=== PATIENT | male | born 1940 | race Caucasian/White ===

== ENCOUNTER 2017-02-28 12:01 | Observation (INO) | payer MEDICARE ==
[2017-02-28] VITALS (8 sets, daily range): BP systolic 141–190; BP diastolic 69–90; PULSE 50–62; RESP 18–20; TEMP 96.7–96.9; O2SAT 97–100; Ht 190.5 cm; Wt 77.1 kg
[~2017-02-28] VITALS: Ht 190.5 cm; Wt 77.1 kg
[~2017-02-28 12:01] MED LIST: AMLO10TA62 PO; ASPI-730 PO; BENA5TAB3 PO; CLIN-89 PO; FINA5TAB2 PO; OMEP20CA81 PO; SIMV40TA82 PO; TAMS0.4C20 PO
--- OUTSIDE RECORDS SUMMARY | 2017-02-28 12:33 | XMS REPORT | Continuity of Care Document ---
Author Author [facility] Organization [facility] Address Unknown Phone Unavailable Care Team Providers Care Putty Patcher Name Role Phone SARINA SWAIN MD Primary Care Physician [phone] Insurance Providers Guarantor Juliet Juárez Address [address] [place] [id number] Email DENIED/NO TO PT [facility] Payer [employer] Policy Number [id number] Subscriber's Name Juliet Juárez Jarvis Relationship 18 Self Effective Date 15 Chief Complaint and Reason for Visit Chief Complaint Upper Extremity Problem Reason for Visit Cellulitis Cat bite involving extremity Problems Active Problems Medical Problem Onset Date Status Erythema of lower extremity Unknown Left leg swelling Unknown Swelling of left lower extremity Unknown Past Problems Medical Problem Onset Date CHF (congestive heart failure) Unknown Cat bite involving extremity Unknown Cellulitis Unknown Lower extremity edema Unknown PAD (peripheral artery disease) Unknown Pedal edema Unknown Medications Current Home Medications Medication Dose Units Route Directions Days Qty Instructions Start Date Amlodipine Besylate (Norvasc) 10 Mg Tablet 10 Mg Oral Bedtime Aspirin 325 Mg Tablet 325 Mg Oral Daily 12/11/13 Benazepril Hcl 5 Mg Tablet 5 Mg Oral Bedtime 08/18/16 Clindamycin Hcl 150 Mg Capsule 3 Cap Oral Four Times Daily 7 Days 84 Capsule TAKE WITH A FULL GLASS OF WATER TO AVOID ESOPHAGEAL IRRITATION. Finasteride (Proscar) 5 Mg Tablet 5 Mg Oral Bedtime 08/18/16 Omeprazole (Prilosec) 20 Mg Capsule.dr 20 Mg Oral Before Breakfast 10/03/09 Simvastatin 40 Mg Tablet 40 Mg Oral Bedtime 12/11/13 Tamsulosin Hcl (Flomax) 0.4 Mg Cap.sr.24h 0.4 Mg Oral Bedtime 04/07 Past Home Medications Medication Directions Ordered Status Benazepril Hcl 40 Mg Tablet, 40 Mg Oral Daily 12/11/13 Discontinued Social History Social History Problem Response Recorded Date/Time Onset Date Status Hx Substance Use No 08/18/2016 4:21pm Not Applicable Not Applicable Hx Alcohol Use Y OCC. 08/18/2016 4:21pm Not Applicable Not Applicable Has the pt used tobacco in the last 12 months Yes 12/11/2013 11:32am Not Applicable Not Applicable Hospital Discharge Instructions No hospital discharge instructions. Plan of Care Discharge Date 11/03/16 2:38pm Disposition 01 DISCHARGED HOME, SELF-CARE Condition at Discharge Stable Instructions/Education Provided DI for Cellulitis -- Adult Animal Bites Prescriptions See Medication Section Referrals SARINA SWAIN MD Address: [address] [place] [phone] Additional Instructions/Education If swelling gets worse, redness worsens or fevers start, go to the ER. Medication as prescribed. Functional Status No functional status results. Allergies, Adverse Reactions, Alerts No known allergies. Immunizations Immunization Event Date Type Not Given Reason Dose Number Lot Number Delivery Sales Worker VIS Given Tdap 11/03/16 Administered 1 [id number] Handy 12/14/14 Query Response on File Recorded Date/Time Hx Influenza Vaccination 200712/11/13 11:32am Hx Pneumococcal Vaccination Y DEC. 201112/11/13 11:32am Hx Influenza Vaccination 200712/11/13 11:32am Hx Tetanus Diptheria No 05/20/09 6:50pm Influenza Vaccine Hx NO 11/03/16 1:43pm Tetanus Diptheria Vaccine History NO 11/03/16 1:43pm Vital Signs Acute Vital Signs Vital Response Date/Time Temperature (Fahrenheit) 97.6 deg F (96.8 - 99.1) 11/03/2016 1:34pm Temperature (Calculated Celsius) 36.72662 degrees C (36.0 - 37.3) 11/03/2016 1:34pm Pulse Rate (adult) 84 bpm (60 - 100) 11/03/2016 1:34pm Respiratory Rate 20 breaths/min (10 - 20) 11/03/2016 1:34pm O2 Sat by Pulse Oximetry 97 % (90 - 100) 11/03/2016 1:34pm Blood Pressure 117/70 mm Hg 11/03/2016 1:34pm Height (Feet) 6 feet 08/18/2016 2:00pm Height (Inches) 75.00 inches 11/03/2016 1:34pm Weight (Kilograms) 78.700 kg 11/03/2016 1:34pm Body Mass Index (BMI) 21.0 11/03/2016 1:34pm Results Laboratory Results Test Name Result Units Flags Reference Collection Date/Time Result Date/ Time Comments White Blood Count 4.6 T/MM3 4.5-11.0 08/18/2016 3:57pm 08/18/2016 4: 02pm Red Blood Count 4.52 M/MM3 4.50-5.90 08/18/2016 3:57pm 08/18/2016 4: 02pm Hemoglobin 14.0 GM/DL 13.5-17.5 08/18/2016 3:57pm 08/18/2016 4:02pm Hematocrit 40.5 % L 41-53 08/18/2016 3:57pm 08/18/2016 4:02pm Mean Corpuscular Volume 89.6 UM3 80-100 08/18/2016 3:57pm 08/18/2016 4: 02pm Mean Corpuscular Hemoglobin 31.0 UUG 26-34 08/18/2016 3:57pm 2015 4:02pm Mean Corpuscular Hemoglobin Concent 34.6 GM/DL 31-37 08/18/2016 3:57pm 08/18/2016 4:02pm RDW Standard Deviation 43.6 FL 36.9-50.2 08/18/2016 3:57pm 08/18/2016 4 :02pm Platelet Count 139 T/MM3 130-400 08/18/2016 3:57pm 08/18/2016 4:02pm Mean Platelet Volume 10.3 UM3 9.4-12.4 08/18/2016 3:57pm 08/18/2016 4: 02pm Neutrophils (%) (Auto) 70.1 % H 33-66 08/18/2016 3:57pm 08/18/2016 4: 02pm Lymphocytes (%) (Auto) 21.3 % L 23-45 08/18/2016 3:57pm 08/18/2016 4: 02pm Monocytes (%) (Auto) 7.0 % 0-9.0 08/18/2016 3:57pm 08/18/2016 4:02pm Eosinophils (%) (Auto) 0.7 % 0-4 08/18/2016 3:57pm 08/18/2016 4:02pm Basophils (%) (Auto) 0.7 % 0-2 08/18/2016 3:57pm 08/18/2016 4:02pm Immature Granulocyte % (Auto) 0.2 % 0.0-0.5 08/18/2016 3:57pm 2015 4:02pm Absolute Neutrophils (auto) 3.2 T/MM3 1.8-7.7 08/18/2016 3:57pm 2015 4:02pm Absolute Lymphocytes (auto) 1.0 T/MM3 1-4.8 08/18/2016 3:57pm 2015 4:02pm Absolute Monocytes (auto) 0.3 T/MM3 0-0.8 08/18/2016 3:57pm 08/18/2016 4:02pm Absolute Eosinophils (auto) 0.0 T/MM3 0-0.5 08/18/2016 3:57pm 2015 4:02pm Absolute Basophils (auto) 0.0 T/MM3 0-0.2 08/18/2016 3:57pm 08/18/2016 4:02pm Absolute Immature Granulocyte (auto 0.01 T/MM3 0.00-0.03 08/18/2016 3: 57pm 08/18/2016 4:02pm D-Dimer 469 NG/ML H 0-230 08/18/2016 3:57pm 08/18/2016 4:08pm <230 NG/ ML D-DU=PRESUMPTIVE NEGATIVE FOR PE OR DVT >230 NG/ML D-DU=ADDITIONAL EVAL FOR PE OR DVT RECOMMENDED Icterus Index < 2 0-7 08/18/2016 3:57pm 08/18/2016 4:10pm Chemistry Specimen Hemolysis < 15 0-25 08/18/2016 3:57pm 08/18/2016 4 :10pm 0-25: Specimen Exhibited No Hemolysis. Turbidity < 20 0-20 08/18/2016 3:57pm 08/18/2016 4:10pm Sodium Level 137 MEQ/L 134-144 08/18/2016 3:57pm 08/18/2016 4:10pm Potassium Level 3.4 MEQ/L L 3.6-5 08/18/2016 3:57pm 08/18/2016 4:10pm Chloride Level 105 MEQ/L 98-107 08/18/2016 3:57pm 08/18/2016 4:10pm Carbon Dioxide Level 28 MEQ/L 22-30 08/18/2016 3:57pm 08/18/2016 4: 10pm Anion Gap 4 MEQ/L L 5-15 08/18/2016 3:57pm 08/18/2016 4:10pm Blood Urea Nitrogen 11.0 MG/DL 07-1008/18/2016 3:57pm 08/18/2016 4: 10pm Creatinine 0.8 MG/DL 0.8-1.5 08/18/2016 3:57pm 08/18/2016 4:10pm BUN/Creatinine Ratio 14 RATIO 04-1508/18/2016 3:57pm 08/18/2016 4:10pm Glomerular Filtration Rate Calc 95 08/18/2016 3:57pm 08/18/2016 4: 10pm Glucose Level 92 MG/DL 75-110 08/18/2016 3:57pm 08/18/2016 4:10pm Calculated Osmolality 263 MOSM/KG 261-280 08/18/2016 3:57pm 08/18/2016 4:10pm Calcium Level 8.0 MG/DL L 8.4-10.2 08/18/2016 3:57pm 08/18/2016 4:10pm Total Bilirubin 1.00 MG/DL 0.20-1.30 08/18/2016 3:57pm 08/18/2016 4: 10pm Alkaline Phosphatase 95 U/L 38-126 08/18/2016 3:57pm 08/18/2016 4:10pm Total Protein 5.0 G/DL L 6.3-8.2 08/18/2016 3:57pm 08/18/2016 4:10pm Albumin 2.4 G/DL L 3.5-5.0 08/18/2016 3:57pm 08/18/2016 4:10pm Globulin 2.6 G/DL 2.4-3.6 08/18/2016 3:57pm 08/18/2016 4:10pm Albumin/Globulin Ratio 0.9 RATIO L 1.1-2.2 08/18/2016 3:57pm 08/18/2016 4:10pm Aspartate Amino Transf (AST/SGOT) 39 U/L 17-59 08/18/2016 3:57pm 2015 4:10pm Alanine Aminotransferase (ALT/SGPT) 50 U/L 21-72 08/18/2016 3:57pm 4:10pm Troponin I 0.013 ng/ml 0-0.12 08/18/2016 3:57pm 08/18/2016 4:22pm Troponin values with a difference of 55% increase from orginal troponin value represent a true biological DELTA value. (%increase Calc=Orginal Troponin value, divided by subsequent Troponin value, multiplied by 100) NX-Vmq-K-Type Natriuretic Peptide 917 PG/ML H 0-175 08/18/2016 3:57pm 4:22pm Rule in cut points: <50 years old=450; 50-75 years old=900; >75 years old=1800; When utilizing ProBNP rule-in cut points, adjustment for impaired renal function is typically not required. Urine Collection Type CLEANCATCH-MIDSTREAM 08/18/2016 4:40pm 2015 4:49pm Urine Color YELLOW YELLOW 08/18/2016 4:40pm 08/18/2016 4:49pm Urine Turbidity CLEAR CLEAR 08/18/2016 4:40pm 08/18/2016 4:49pm Urine Specific [place] 1.010 L 1.015-1.025 08/18/2016 4:40pm 2015 4:49pm Urine pH 6.0 5.0-8.0 08/18/2016 4:40pm 08/18/2016 4:49pm Urine Leukocyte Esterase NEGATIVE NEGATIVE 08/18/2016 4:40pm 2015 4:49pm Urine Nitrite NEGATIVE NEGATIVE 08/18/2016 4:40pm 08/18/2016 4:49pm Urine Protein NEGATIVE NEGATIVE 08/18/2016 4:40pm 08/18/2016 4:49pm Urine Glucose (UA) NEGATIVE NEGATIVE 08/18/2016 4:40pm 08/18/2016 4: 49pm Urine Ketones NEGATIVE NEGATIVE 08/18/2016 4:40pm 08/18/2016 4:49pm Urine Urobilinogen 2.0 EU/DL NORMAL 08/18/2016 4:40pm 08/18/2016 4: 49pm Urine Bilirubin NEGATIVE NEGATIVE 08/18/2016 4:40pm 08/18/2016 4: 49pm Urine Blood NEGATIVE NEGATIVE 08/18/2016 4:40pm 08/18/2016 4:49pm Urinalysis Comment MICROSCOPIC NOT IND. 08/18/2016 4:40pm 2015 4:49pm Procedures Procedure Status Date Provider(s) Ct head/brain w/o dye Completed 08/18/16 Chest x-ray 1 view frontal Completed 08/18/16 Comprehen metabolic panel Completed 08/18/16 Urinalysis auto w/o scope Completed 08/18/16 Assay of natriuretic peptide Completed 08/18/16 Assay of troponin quant Completed 08/18/16 Complete cbc w/auto diff wbc Completed 08/18/16 Fibrin degradation quant Completed 08/18/16 Electrocardiogram tracing Completed 08/18/16 Extremity study Completed 08/18/16 Emergency dept visit Completed 08/18/16 Encounters Encounter Location Arrival/Admit Date Discharge/Depart Date Attending Provider Departed Emergency Room [facility] 11/03/16 12:46pm 11/03/16 2: 38pm REKHA GUPTA APRN Departed Emergency Room [facility] 08/18/16 1:20pm 08/18/16 8: 21pm DEEPA BELL MD Departed Emergency Room [facility] 08/18/16 12:08pm 08/18/16 1: 06pm SUKHDEV LEVI APRN Recent Diagnosis
--- NOTE | 2017-02-28 12:40 | NUR ---
Admit Patient admitted to medical unit 162. Patient alert and oriented. Unsteady gait. Complains of lightheadedness and dizziness. Hasn't been eating or drinking. He started feeling bad yesterday.
[2017-02-28] MEDS ORDERED: ASPI-557 PO (12:59)
[2017-02-28] MEDS ORDERED: METOCLOPRAMIDE 10mg/2ml INJECTION IV PRN (13:00)
[2017-02-28] MEDS ORDERED: MECL-103 PO (13:00)
[2017-02-28] MEDS ORDERED: D5-1/2 NS KCL 20 MEQ 1,000 ML IV ONE ×2 (13:00→15:00)
[2017-02-28 14:10] LABS: HCT - HEMATOCRIT 44.1 % (41-53); HGB - HEMOGLOBIN 14.8 GM/DL (13.5-17.5); MEAN CORPUSCULAR HGB CONC(MCHC 33.6 GM/DL (31-37); MEAN CORPUSCULAR VOLUME 92.3 UM3 (80-100); MEAN PLATELET VOLUME 10.3 UM3 (9.4-12.4); RED BLOOD COUNT 4.78 M/MM3 (4.50-5.90); WBC - WHITE BLOOD COUNT 4.7 T/MM3 (4.5-11.0)
[2017-02-28 14:20] LABS: ALBUMIN 3.3 G/DL (3.5-5.0); ALBUMIN/GLOBULIN RATIO 1.4 RATIO (1.1-2.2); ALKALINE PHOSPHATASE 74 U/L (38-126); ALT (SGPT) 31 U/L (21-72); ANION GAP 9 MEQ/L (5-15); AST (SGOT) 17 U/L (17-59); BUN/CREATININE RATIO 13 RATIO (6-26); CALCIUM 8.8 MG/DL (8.4-10.2); CHLORIDE 103 MEQ/L (98-107); CO2 - CARBON DIOXIDE 29 MEQ/L (22-30); CREATININE 0.8 MG/DL (0.8-1.5); GLOMERULAR FILTRATION RATE 94; GLUCOSE 159 MG/DL (75-110); POTASSIUM 4.7 MEQ/L (3.6-5); SODIUM 141 MEQ/L (134-144); TOTAL PROTEIN 5.6 G/DL (6.3-8.2)
[2017-02-28 14:28] LABS: EOSINOPHILS # (MANUAL) 0.1 T/MM3 (0-0.5); LYMPHOCYTES # (MANUAL) 0.5 T/MM3 (1-4.8); MONOCYTES # (MANUAL) 0.2 T/MM3 (0-0.8); NEUTROPHILS #(MANUAL)-ABSOLUTE 3.8 T/MM3 (1.8-7.7); TOTAL CELLS COUNTED 100 %
--- NOTE | 2017-02-28 14:37 | HPF ---
HISTORY OF PRESENT ILLNESS Patient is a 76-year-old male here today with his to the clinic to see Dr. Robbin Denis. Patient presented with a 2-3 day history of worsening dizziness which is described in the form of lightheadedness and dysequilibrium. He has not fallen yet. He also complains of nausea and a couple of episodes of vomiting. Nausea is intractable. He has some blurry vision as well as some fatigue and sense of out of balance. He has tried prescription meclizine; that has not helped him. He had a similar episode a year or two ago in the past. Patient will be admitted to [facility] on an outpatient basis under the care of Dr. Robbin Denis to receive IV fluids and further workup may be needed at that time. PAST MEDICAL HISTORY 1. Squamous cell carcinoma of the denominational. 2. Left meniscal repair 09/2006. 3. Left carotid endarterectomy 03/2012. 4. Dyslipidemia. 5. Peripheral artery disease. 6. Benign prostatic hypertrophy. 7. Chronic smoker. 8. Congestive heart failure. 9. Arteriosclerotic vascular disease. 10. Chronic obstructive pulmonary disease. 11. Paroxysmal atrial fibrillation. SOCIAL HISTORY Patient is , has two sons. He has smoked tobacco for about 44 years. FAMILY HISTORY Father at the age of 83 from acute myocardial infarction. His mom at the age of 83 from a cerebrovascular accident. Brother had a coronary artery bypass. ALLERGIES No known medical allergies. CURRENT MEDICATIONS 1. Aspirin 81 mg one tablet daily. 2. Benazepril 5 mg one tablet twice a day. 3. Flomax 0.4 mg one tablet daily. 4. Prilosec 20 mg one tablet daily. 5. Proscar 5 mg one tablet daily. 6. Simvastatin 40 mg one tablet at bedtime. 7. Vitamin D3 2000 IU one daily. 8. Xarelto 20 mg one-half tablet daily. REVIEW OF SYSTEMS Patient denies any chest pain, orthopnea, no PND, no leg swelling. Denies hematochezia, no melena. Denies any TIA or CVA symptoms. Other sxs as in HPI. PHYSICAL EXAMINATION GENERAL: Patient looks weak and tired looking. VITALS: Blood pressure was 140/70 with temperature 96.6, pulse 60. Weight is 167.2 pounds. He weighed 182 pounds just about two months ago, so he has lost about 17 pounds in about a month. HEENT: Unremarkable. NECK: Supple. LUNGS: Clear to auscultation bilaterally. CARDIOVASCULAR: Regular rate and rhythm. ABDOMEN: Soft, nontender. EXTREMITIES: No cyanosis, no clubbing, no edema. NEURO EXAM: Grossly intact. ASSESSMENT 1. Acute dizziness, intractable. 2. Acute dehydration. 3. Acute lightheadedness. 4. Nausea and vomiting. 5. Fatigue. 6. Blurry vision. 7. Dysequilibrium. PLAN Admit pt to [facility] for IV fluids as well as other additional workup that may be needed. Today we are going to order for CBC, CMP, UA, Troponin-I, D-dimer, EKG. Additional workup will be done if indicated. ANGEL
[2017-02-28 15:22] LABS: THYROID STIM HORMONE-TSH 0.52 MIU/L (0.47-4.68)
[2017-02-28 16:01] LABS: BLOOD, URINE 3+ (NEGATIVE); COLOR,URINE YELLOW (YELLOW); LEUKOCYTE ESTERASE ,URINE NEGATIVE (NEGATIVE); NITRITE,URINE NEGATIVE (NEGATIVE)
[2017-02-28 16:19] LABS: BACTERIA,URINE NONE SEEN (NEGATIVE); MUCUS,URINE PRESENT; RBC,URINE 20-30 /HPF (0-3); WBC,URINE 0-1 /HPF (0-5)
--- NOTE | 2017-02-28 18:27 | NUR ---
Meds Daughter at bedside and gives some history on pt. Daughter states while in the ER, he was in and out of afib. Pt was suppose to follow up with cardiology however canceled his appointment. Patient was also prescribed Eliquis however the med was too expensive therefore isn't taking it. Patient had a 60point drop in SBP during an ER visit.
--- NOTE | 2017-02-28 18:31 | NUR ---
Status Patient alert and oriented. [place]. Patient complains of dizziness when standing. Breathing comfortably on RA. Family has been at side.
[2017-02-28] MEDS: D5-1/2 NS KCL 20 MEQ 1,000 ML IV SCH (19:38)
[2017-03-01] MEDS: D5-1/2 NS KCL 20 MEQ 1,000 ML IV SCH ×2 (03:15→11:25)
[2017-03-01 04:55] VITALS: BP 162/73; PULSE 56; RESP 13; TEMP 96.3; O2SAT 95
--- NOTE | 2017-03-01 06:20 | NUR ---
Slept well during the night except for waking to use urinal. Denies pain. No dyspnea observed. Poor peripheral pulses. Unable to obtain B/P with automatic B/P cuff. Manual B/P easily auscultated. heart rate irregular. No changes with Telemetry. Continues to show A-Fib; pauses; heartrate slows to bradycardia at times. SPO2 remains above 95% Room Air. Denies pain.
[2017-03-01 07:10] VITALS: BP 184/90; PULSE 60; RESP 16; TEMP 97.3; O2SAT 96
[2017-03-01 07:12] VITALS: PULSE 56; RESP 16
--- NOTE | 2017-03-01 08:00 | NUR ---
RECEIVED REPORT PATIENT IS ALERT AND ORIENTED. PATIENT HAS NOT GOT UP YET. UNABLE TO DETERMINE IF HE STILL HAS DIZZINESS AT THIS TIME. PATIENT IS ON D5 1/2 NS AT 125ML/HR.
[2017-03-01] MEDS ORDERED: ASPIRIN *EC* 81mg TABLET PO SCH (09:00)
[2017-03-01] MEDS ORDERED: NORMAL SALINE 100 ML ONE (09:34)
[2017-03-01] MEDS ORDERED: SALINE FLUSH 10ml SYRINGE ONE (09:34)
[2017-03-01] MEDS ORDERED: IOHEXOL 300 MG/ML 50ml INJECTION ONE (09:34)
--- NOTE | 2017-03-01 10:39 | DI ---
Indication: ITS.REASON: recalcitant dizziness CT HEAD W/WO CONTRAST: Comparison: 08/18/2016 Technique: Nonenhanced axial imaging with bone and brain window evaluation utilizing dose reduction imaging technology. Findings: Patient continues to show similar intracranial appearance to prior examination. Mild deep white matter changes and some generalized atrophy is present. No specific posterior fossa mass is identified. Bone window evaluation showed well-aerated mastoids. Visualized sinuses showed a possible density in the left side in the maxillary region. This was identified on the old study. Impression: Stable mild chronic intracranial changes without any acute new abnormality or posterior fossa lesions noted. .
--- NOTE | 2017-03-01 10:56 | NUR ---
KACIE HESTER VISITED WITH PT AND SPOUSE. CM EXPLAINED ROLE AND PROVIDED CONTACT INFORMATION. PT PLANS TO RETURN HOME TODAY. PT DENIES NEEDS. PT DOESN'T WANT TO HAVE TO STAY HOME PT STATES THAT HE WANTS TO BE FREE TO COME AND GO HE DESIRES. PT IS AWARE TO CONTACT CM IF NEEDS ARISE.
[2017-03-01 16:34] VITALS: PULSE 53; RESP 16; TEMP 96.2; O2SAT 99
[2017-03-01] MEDS ORDERED: SCOP1PAT TD (18:46)
--- NOTE | 2017-03-01 18:51 | NUR ---
STATUS PATIENT HAS BEEN WANTING TO GO HOME. PATIENT WA ADMITTED HERE FOR DIZZINESS. DECLINES NURSING ACTIVITIES SAYING HE WAS DIZZY BUT STILL WANTS TO GO HOME. DR. BATEMAN AT BEDSIDE. DR. AGUILAR IS CONSULTED DUE TO SINUS ARRHYTHMIA . PATIENT DISCHARGE IS FINALIZED PENDING DR. AGUILAR ASSESSMENT.
--- NOTE | 2017-03-01 18:57 | PNF ---
DATE 03/01/2017 SUBJECTIVE Patient is in room 162 in his bed. He was seen by Physical Therapy earlier. He was unsteady and had some dizziness. Denies any chest pain. I had a lengthy discussion with the patient and his . He has a history of irregular heartbeat, atrial fibrillation. In the past he has seen Dr. Greene. The telemetry strip shows bradycardia as low as 47. Denies chest pain, orthopnea, PND, leg-swelling, hematochezia or melena. He still has quite a lot of dizziness, especially when he stands up. PHYSICAL EXAM VITAL SIGNS: Pulse has been between 47-60. GENERAL: The patient looks comfortable overall. ASSESSMENT 1. Acute intractable dizziness manifested as disequilibrium and lightheadedness. No vertigo reported. 2. Acute dehydration. 3. Nausea and vomiting - improved. 4. Fatigue. 5. Blurry vision. 6. Disequilibrium. 7. Chronic atrial fibrillation. 8. Bradycardia. PLAN The patient is not on any medication that would cause bradycardia. Rule out sick sinus syndrome. Reviewed lab including CBC, CMP, TSH, magnesium, Troponin I and D-dimer. All were negative. CT head was unremarkable. EKG did show atrial fibrillation with slow ventricular response, right bundle branch block. Consult to Dr. Greene to evaluate the bradycardia which may be a culprit for the patient's dizziness. The patient has received adequate IV fluids during the hospitalization at this time. Will see what Dr. Greene says. If he clears him, then I will send him home tonight. [facility]
--- NOTE | 2017-03-01 19:59 | NUR ---
DISCHARGED PATIENT DISCHARGE AND MEDICATION INSTRUCTIONS ARE GIVEN. DR. AGUILAR WILL NOT BE ABLE TO SEE PATIENT TONIGHT. DR. BATEMAN CALLS AND SAYS ITS OKAY TO SEND PATIENT HOME BUT HAS TO MAKE AN APPOINTMENT ON SATURDAY TO SEE DR. AGUILAR IN HIS OFFICE. PATIENT'S QUESTIONS ARE ANSWERED AT THIS TIME.
[2017-03-01] MEDS ORDERED: SIMVASTATIN 40 MG TABLET PO SCH (22:00)
[2017-03-01] MEDS ORDERED: BENAZEPRIL 10 MG TABLET PO SCH (22:00)
[2017-03-02] MEDS ORDERED: OMEPRAZOLE 20 MG CAPSULE PO SCH (06:30)
--- NOTE | 2017-03-04 17:43 | DSF ---
FINAL DIAGNOSES 1. Intractable acute dizziness manifested as lightheadedness and disequilibrium. 2. Acute dehydration. 3. Nausea and vomiting. 4. Fatigue. 5. Blurry vision. REASON FOR ADMISSION Patient is a 76-year-old male who presented to the clinic with chief complaint of a bit-xl-njheh-day history of worsening which was described as lightheadedness and dysequilibrium. He felt like he was going to fall. He had some nausea and vomiting. The nausea became intractable - the vomiting was getting better. He complained of blurry vision and fatigue. He had tried meclizine which had not helped very much. The patient states he had lost about 17 pounds in the last month or so. ADMISSION PHYSICAL EXAMINATION GENERAL: Patient looked weak and tired. He was quite unsteady, even with the assistance of the staff including myself. and he almost fell. Otherwise, physical examination was unremarkable. VITALS: Blood pressure was 140/70 with temperature 96.6, pulse 60. LABORATORY CBC was totally normal. Electrolytes were normal including creatinine 0.8, sodium 141, potassium 4.7. Liver function tests were normal. TSH was normal. Troponin I was normal. D-dimer normal at 170. Urine showed 1+ ketones, 3+ blood, 20-30 RBC. HOSPITAL COURSE This patient was admitted to the general medical floor under the care of Dr. Robbin Denis on an outpatient basis. The patient was started on IV fluids. He was made bedrest with assistance. Physical Therapy was consulted. They worked with him and recommended home health. The patient did have bradycardia for most of this hospitalization with pulse between 47-63. I discussed this finding with Dr. Greene. He will see the patient on an outpatient basis. Dr. Greene is the patient's cottonseed meat presser. The patient was medically stable enough to be dismissed to home with home health assistance p.r.n. A CT head was done which was unremarkable. He was still having dizzy spells before dismissal. His improvement was of moderate status. DISCHARGE MEDICATIONS 1. Scopolamine patch changed q.12h. 2. Aspirin 81 mg one tablet daily. 3. Benazepril 10 mg at bedtime. 4. Proscar 5 mg one tablet at bedtime. 5. Meclizine 25 mg one tablet t.i.d. p.r.n. 6. Omeprazole 20 mg capsule p.o. a.c. breakfast. 7. Simvastatin 40 mg one tablet at bedtime. 8. Flomax 0.4 mg p.o. q.h.s. FOLLOWUP Follow up with Dr. Denis in 7-10 days. After that, will send patient back to Dr. Wallace, his PCP. [facility]
== END 2017-03-01 20:06 | disposition home or self-care (01) ==
LOC: MED 12:23
PROVIDERS: ADMIT Family Medicine; ATTEND Family Medicine
DX: R42 Dizziness and giddiness (principal); E86.0 Dehydration; R11.2 Nausea with vomiting, unspecified; R53.83 Other fatigue; H53.8 Other visual disturbances; R26.81 Unsteadiness on feet; R00.1 Bradycardia, unspecified; E78.00 Pure hypercholesterolemia, unspecified; J44.9 Chronic obstructive pulmonary disease, unspecified; I48.0 Paroxysmal atrial fibrillation; I73.9 Peripheral vascular disease, unspecified; N40.0 Benign prostatic hyperplasia without lower urinary tract symptoms; I50.9 Heart failure, unspecified; I70.90 Unspecified atherosclerosis; F17.210 Nicotine dependence, cigarettes, uncomplicated; Z79.02 Long term (current) use of antithrombotics/antiplatelets; Z79.82 Long term (current) use of aspirin; Z79.899 Other long term (current) drug therapy
CPT/HCPCS: 36415; 70470; 80053; 81001; 83735; 84443; 84484; 85025; 85379; 93005; 96360; 96361; 97140; 97162; A9270; G0378; G0379; G8978; G8979; G8980; J7050; Q9967; 99218